=== PATIENT | female | born 1990 | race Caucasian/White ===

== ENCOUNTER 2019-04-14 11:55 | Emergency (ER) | payer OTHER ==
[~2019-04-14] VITALS: Ht 177.8 cm; Wt 59.0 kg
[2019-04-14 12:01] VITALS: BP 150/97
--- NOTE | 2019-04-14 12:05 | NUR ---
POLINA CADET AT BEDSIDE FOR EVAL.
[2019-04-14] MEDS ORDERED: IBUPROFEN 600 MG TABLET PO ONE ×2 (12:17→12:30)
--- NOTE | 2019-04-14 12:22 | NUR ---
ASSISTANT INFANT TODDLER TEACHER AT BEDSIDE FOR XRAY.
--- NOTE | 2019-04-14 12:56 | NUR ---
SHOULDER SLING APPLIED BY EMT
--- NOTE | 2019-04-14 13:41 | NUR ---
Patient discharged to home in stable condition. Written and verbal after care instructions given. Patient verbalizes understanding of instruction.
== END 2019-04-14 13:42 | disposition home or self-care (01) ==
LOC: ER 11:55
DX: S42.034A Nondisplaced fracture of lateral end of right clavicle, initial encounter for closed fracture (principal); S40.011A Contusion of right shoulder, initial encounter; S20.211A Contusion of right front wall of thorax, initial encounter; W01.0XXA Fall on same level from slipping, tripping and stumbling without subsequent striking against object, initial encounter; Y93.89 Activity, other specified; Y92.89 Other specified places as the place of occurrence of the external cause; Y99.8 Other external cause status
CPT/HCPCS: 73030-TC

== ENCOUNTER 2020-07-24 15:28 | Inpatient (IN) | payer OTHER ==
[~2020-07-24] VITALS: Ht 177.8 cm; Wt 75.7 kg
--- NOTE | 2020-07-24 15:40 | NUR ---
BIB SELF C/O L FLANK PAIN FOR 5 DAYS AND FEVER STARTED TODAY. THE PATIENT RATES PAIN 8/10. DENIES SOB. RESPIRATION REGULAR AND UNLABORED. THE PATIENT IS ALERT AND ORIENTED X4. WARM BLANKET PROVIDED FOR COMFORT. WILL CONTINUE TO MONITOR.
[2020-07-24] MEDS ORDERED: KETOROLAC TROMETHAMINE 15 MG/ML VIAL ONE (16:29)
[2020-07-24] MEDS ORDERED: IV NS 0.9% 1,000 ML BAG IV ONE ×2 (16:30→17:30)
[2020-07-24] MEDS ORDERED: KETOROLAC TROMETHAMINE INJ 30 MG/ML VIAL IV ONE (16:30)
--- NOTE | 2020-07-24 16:30 | NUR ---
WAIVER SIGNED BY THE PATIENT
[2020-07-24 16:45] LABS: BASOPHILS % (AUTO) 0.1 % (0.0-2.0); HEMATOCRIT 40 % (33-45); HEMOGLOBIN 13.5 g/dL (11.5-14.8); LYMPHOCYTES # (AUTO) 0.6 /CMM (0.8-4.8); LYMPHOCYTES % (AUTO) 3.9 % (20.0-44.0); MEAN CORPUSCULAR HGB CONC 33 g/dl (31.0-36.0); MEAN CORPUSCULAR VOLUME 92 fL (82-100); MONOCYTES # (AUTO) 1.5 /CMM (0.1-1.30); MONOCYTES % (AUTO) 9.2 % (2.0-12.0); NEUTROPHILS # (AUTO) 14.4 /CMM (1.8-8.9); NEUTROPHILS % (AUTO) 86.8 % (43.0-81.0); PLATELET COUNT (AUTO) 255 /CMM (150-450); RED BLOOD CELL COUNT(AUTO) 4.38 MIL/uL (4.0-5.2); WHITE BLOOD COUNT (AUTO) 16.6 K/uL (4.3-11.0)
[2020-07-24 16:52] LABS: CALCIUM, SERUM 9.8 mg/dL (8.5-10.1); CARBON DIOXIDE 24 mmol/L (21-32); CHLORIDE 97 mmol/L (98-107); CREATININE 1.2 mg/dL (0.6-1.3); GLUCOSE 177 mg/dL (74-106); POTASSIUM 3.6 mmol/L (3.5-5.1); SODIUM SERUM 131 mmol/L (136-145); UREA NITROGEN, BLOOD 8 mg/dL (7-18)
[2020-07-24 16:59] LABS: ALANINE AMINOTRANSFERASE 20 U/L (12-78); ALBUMIN 3.2 g/dL (3.4-5.0); ALKALINE PHOSPHATASE 90 U/L (46-116); ASPARTATE AMINOTRANSFERASE 11 U/L (15-37); BILIRUBIN,DIRECT 0.2 mg/dL (0.0-0.2); BILIRUBIN,TOTAL 0.5 mg/dL (0.2-1.0); LIPASE 23 U/L (73-393); TOTAL PROTEIN, SERUM 8.2 g/dL (6.4-8.2)
[2020-07-24] MEDS ORDERED: CEFTRIAXONE 1GM BAG (ER ONLY) 50 ML IV ONE ×2 (17:30→17:37)
--- NOTE | 2020-07-24 17:34 | NUR ---
MORPHINE 2 MG IV PUSH ORDERED BY DR RENEE. READ BACK, VERIFIED. NOTED AND CARRIED OUT.
[2020-07-24] MEDS ORDERED: MORPHINE SULFATE INJ 2 MG/ML DISP.SYRIN ONE (17:37)
[2020-07-24] MEDS ORDERED: MORPHINE SULFATE INJ 2 MG/ML DISP.SYRIN IV ONE (18:00)
[2020-07-24] MEDS ORDERED: ETHI1TAB4 PO (18:47)
[2020-07-24] MEDS ORDERED: FLUO40CA8 PO (18:47)
[2020-07-24] MEDS ORDERED: CLON0.5T PO (18:47)
[2020-07-24 19:09] LABS: BILIRUBIN,URINE NEGATIVE (NEGATIVE); COLOR,URINE YELLOW (YELLOW); LEUKOCYTE ESTERASE ,URINE SMALL (NEGATIVE); NITRITE, URINE NEGATIVE (NEGATIVE); PROTEIN,URINE 30 mg/dl (NEGATIVE); UGLUCOSE 100 MG/DL mg/dL (NEGATIVE); UROBILINOGEN,URINE 0.2 EU/dL (0.2)
--- NOTE | 2020-07-24 19:16 | NUR ---
Call from lab. Rapid covid negative.
[2020-07-24 19:30] LABS: BACTERIA,URINE 1+ /HPF (None Seen)
--- NOTE | 2020-07-24 19:49 | NUR ---
RECIEVED BED 322-2
--- NOTE | 2020-07-24 20:16 | NUR ---
REPORT GIVEN TO MIRTA KUMAR FOR JAIME
--- NOTE | 2020-07-24 21:11 | NUR ---
PT TRANSFERRED TO MS BED 322 VIA [facility] IN STABLE CONDITION
[2020-07-24 21:15] VITALS: BP 111/54
--- NOTE | 2020-07-24 21:15 | NUR ---
MS RN NOTE TEMP 100.6 F. COOLING MEASURES INITIATED. COLD PACKS PLACED ON FOREHEAD AND BOTH AXILLA.
[2020-07-24] MEDS: IV NS 0.9% 1,000 ML IV PRN (21:54)
[2020-07-24] MEDS ORDERED: Z GUARD REMEDY 2 OZ OINT TP PRN (22:00)
--- NOTE | 2020-07-24 22:10 | NUR ---
MS EMT P NOTE: PATIENT TRANSFERRED TO ROOM 322-2. ORIENTED PATIENT TO ROOM, UNIT, PRIMARY NURSE, AND PEST CONTROL WORKER. PATIENT'S SKIN INTACT BESIDES L UPPER THIGH BRUISE AND SMALL BRUISE ON LEFT ARM D/T HITTING A TABLE IN THE DARK AT HOME. PATIENT CURRENTLY REPORTS MILD PAIN. PATIENT HAVING FEVER AND CHILLS. SAFETY PRECAUTIONS IN PLACE. CALL LIGHT WITHIN REACH. WILL MONITOR PATIENT CLOSELY DURING THE SHIFT. Addendum: 07/24/20 at 2232 by TYRONE MOSER RN TIME OF ADMISSION 037
[2020-07-24] MEDS: ONDANSETRON HCL/PF 4 MG/2 ML VIAL IVP PRN (22:11)
[2020-07-24] MEDS: MORPHINE SULFATE INJ 2 MG/ML DISP.SYRIN IV PRN (22:11)
--- NOTE | 2020-07-24 22:15 | NUR ---
MS RN NOTE RECHECKED PATIENT'S TEMPERATURE. ELEVATED TO 103. 6. COOLING MEASURES STILL IN PLACE AND TYLENOL 650 MG GIVEN FOR FEVER. WILL REASSESS.
[2020-07-24] MEDS: ACETAMINOPHEN 325 MG TABLET PO PRN (22:24)
--- NOTE | 2020-07-24 23:30 | NUR ---
MR RN NOTE TEMP RECHECKED. DECREASED TO 100.4. WILLCONTINUE COOLING MEASURES AND WILL CLOSELY MONITOR PATIENT.
--- NOTE | 2020-07-25 00:30 | NUR ---
MS RN NOTE TEMP IS NOW 99.3. WILL CONTINUE TO MONITOR CLOSELY.
[2020-07-25 05:36] VITALS: BP 106/62
[2020-07-25] MEDS: ACETAMINOPHEN 325 MG TABLET PO PRN ×2 (05:36→12:36)
[2020-07-25] MEDS: ONDANSETRON HCL/PF 4 MG/2 ML VIAL IVP PRN ×3 (05:36→21:49)
--- NOTE | 2020-07-25 05:36 | NUR ---
MS RN NOTE PATIENT GIVEN TYLENOL 650 MG AND ZOFRAN 4MG FOR FEVER OF 102.3 AND NAUSEA.
[2020-07-25] MEDS: MORPHINE SULFATE INJ 2 MG/ML DISP.SYRIN IV PRN ×4 (06:15→21:53)
--- NOTE | 2020-07-25 06:52 | NUR ---
MS RN CLOSING NOTE PATIENT RESTING IN BED, EASILY AWAKENED. A/O X 4. PATIENT DOES NOT REPORT OF ANY PAIN N/V AT THIS TIME. TEMPERATURE NOW AT 100.2 F. INSTRUCTED PATIENT TO CONTINUE COOLING MEASURES. PAIN AND NAUSEA MANAGED DURING THE SHIFT. BREATHING EVEN AND UNLABORED. PATIENT TOLERATING ROOM AIR. NS @ 75 ML/HR INFUSING WELL/ IV SITE PATENT AND INTACT. ROUTINE AND PRN MEDS GIVEN. SAFETY PRECAUTIONS MAINTAINED THROUGHOUT THE SHIFT. ALL NEEDS MET AND ATTENDED. WILL ENDORSE TO DAY SHIFT NURSE.
--- NOTE | 2020-07-25 07:49 | NUR ---
MS RN OPENING NOTE PT RECEIVED IN BED, AWAKE AND RESPONSIVE. PT IS A/O X 4, VERBAL, HEBREW SPEAKING AND ABLE TO MAKE NEEDS KNOWN WITH NO C/O PAIN OR S/SX OF ACUTE DISTRESS AT THIS TIME. PT IS ON ROOM AIR WITH NO S/SX OF RESPIRATORY DISTRESS NOTED. PT'S IV ACCESS IS ON LEFT FOREARM G#20, PATENT, INTACT AND FLUSHING WELL, RUNNING NS AT 75 ML/HR, WITH NO S/SX OF INFECTION, INFILTRATION OR IRRITATION. PT IS AMBULATORY WITH STEADY GAIT AND CAN GO TO THE BATHROOM INDEPENDENTLY. SAFETY MEASURES IN PLACE: BED IN LOWEST, LOCKED POSITION WITH BOTH UPPER SIDE RAILS UP X2. CALL LIGHT PLACED WITHIN REACH. WILL CONTINUE TO MONITOR.
[2020-07-25 08:00] VITALS: BP 106/63
[2020-07-25] MEDS: FLUOXETINE HCL 20 MG/5 ML UDC PO SCH (08:16)
[2020-07-25 10:53] LABS: BASOPHILS % (AUTO) 0.2 % (0.0-2.0); EOSINOPHILS % (AUTO) 0.1 % (0.0-6.0); HEMATOCRIT 34 % (33-45); HEMOGLOBIN 11.3 g/dL (11.5-14.8); LYMPHOCYTES # (AUTO) 1.1 /CMM (0.8-4.8); LYMPHOCYTES % (AUTO) 7.4 % (20.0-44.0); MEAN CORPUSCULAR HGB CONC 33 g/dl (31.0-36.0); MEAN CORPUSCULAR VOLUME 93 fL (82-100); MONOCYTES # (AUTO) 1.6 /CMM (0.1-1.30); MONOCYTES % (AUTO) 10.3 % (2.0-12.0); NEUTROPHILS # (AUTO) 12.6 /CMM (1.8-8.9); PLATELET COUNT (AUTO) 233 /CMM (150-450); RED BLOOD CELL COUNT(AUTO) 3.72 MIL/uL (4.0-5.2); WHITE BLOOD COUNT (AUTO) 15.3 K/uL (4.3-11.0)
[2020-07-25 11:10] LABS: ALBUMIN 2.4 g/dL (3.4-5.0); BILIRUBIN,TOTAL 0.3 mg/dL (0.2-1.0); CREATININE 0.9 mg/dL (0.6-1.3); MAGNESIUM 1.7 mg/dL (1.8-2.4); PHOSPHORUS 2.1 mg/dL (2.5-4.9); POTASSIUM 3.9 mmol/L (3.5-5.1); TOTAL PROTEIN, SERUM 6.4 g/dL (6.4-8.2)
[2020-07-25 11:17] LABS: THYROID STIMULATING HORMONE 0.485 uIU/mL (0.358-3.74)
[2020-07-25] MEDS: IV NS 0.9% 1,000 ML IV PRN (11:22)
--- NOTE | 2020-07-25 12:55 | NUR ---
MS RN NOTE: FEVER/CHILLS PT OBSERVED HAVING CHILLS AND FEVER OF 100.2. COOLING MEASURES INITIATED FOR FEVER, AND HEATED BLANKET GIVEN TO PT FOR CHILLS, PER PT'S REQUEST. OFFERED AND ADMINISTERED TYLENOL 650MG PO Q6H PRN AT 1236 ORDERED PER PT'S REQUEST. WILL CONTINUE TO MONITOR.
--- NOTE | 2020-07-25 12:57 | NUR ---
MS RN NOTE: PAIN PT C/O ACHING, STABBING PAIN ON LEFT SIDE/BACK RATED 8/10. COSTOVERTEBRAL ANGLE POSITIVE FOR TENDERNESS PER DR. [place]. OFFERED AND ADMINISTERED MORPHINE 2MG IVP Q4H PRN AT 1237 ORDERED PER PT'S REQUEST. WILL CONTINUE TO MONITOR. Addendum: 07/25/20 at 1324 by DAVE CORREA RN REASSESSED AT 1307. NO C/O PAIN AT THIS TIME.
--- NOTE | 2020-07-25 12:57 | NUR ---
MS KIRBY NOTE: NAUSEA PT C/O NAUSEA WITHOUT EMESIS. OFFERED AND ADMINISTERED ZOFRAN 4MG/2ML IVP Q6H PRN AT 1236 ORDERED PER PT'S REQUEST. WILL CONTINUE TO MONITOR. Addendum: 07/25/20 at 1323 by DAVE CORREA RN REASSESSED NAUSEA AT 1306. NO C/O NAUSEA AT THIS TIME.
[2020-07-25] MEDS ORDERED: K PHOS NEUTRAL 250 MG TABLET PO ONE (15:30)
[2020-07-25 16:00] VITALS: BP 113/62
[2020-07-25] MEDS: clonazePAM 0.5 MG TABLET PO PRN ×2 (16:05→23:10)
[2020-07-25] MEDS: CEFTRIAXONE 2 G in IV D5W 100 ML IV SCH (16:37)
--- NOTE | 2020-07-25 16:48 | NUR ---
MS KIRBY NOTE: PAIN PT C/O LEFT LOWER BACK/ABDOMEN PAIN RATED 8/10. OFFERED AND ADMINISTERED MORPHINE SULFATE 2MF IBP Q4H PRN AT 1638 ORDERED PER PT'S REQUEST. WILL CONTINUE TO MONITOR. Addendum: 07/25/20 at 1709 by DAVE CORREA RN REASSESSED AT 1708 WITH 0/10 PAIN.
--- NOTE | 2020-07-25 18:50 | NUR ---
MS RN CLOSING NOTE PT REMAINS IN BED, AWAKE, RESPONSIVE AND WATCHING TV. PT IS A/O X 4, VERBAL, CHINESE SPEAKING AND ABLE TO MAKE NEEDS KNOWN WITH NO C/O PAIN OR S/SX OF ACUTE DISTRESS AT THIS TIME. PT IS ON ROOM AIR WITH NO S/SX OF RESPIRATORY DISTRESS NOTED. PT'S IV ACCESS IS ON LEFT FOREARM G#20, PATENT, INTACT AND FLUSHING WELL, RUNNING NS AT 75 ML/HR, WITH NO S/SX OF INFECTION, INFILTRATION OR IRRITATION. PT IS AMBULATORY WITH STEADY GAIT AND CAN GO TO THE BATHROOM INDEPENDENTLY. ALL CARE, NEEDS, MEDICATION AND TREATMENTS GIVEN ON TIME ORDERED PER FACILITY PROTOCOL. SAFETY MEASURES MAINTAINED: BED IN LOWEST POSITION AND LOCKED WITH BOTH UPPER SIDE RAILS UP X2. CALL LIGHT PLACED WITHIN REACH. WILL ENDORSE TO COUNTY DEMONSTRATOR NURSE.
[2020-07-25 19:00] VITALS: BP 119/60
[2020-07-25 20:00] VITALS: BP 119/60
[2020-07-26 02:32] VITALS: BP 111/75
[2020-07-26 04:00] VITALS: BP 100/63
[2020-07-26] MEDS: IV NS 0.9% 1,000 ML IV PRN ×2 (04:52→22:45)
[2020-07-26] MEDS: ACETAMINOPHEN 325 MG TABLET PO PRN (05:41)
[2020-07-26 06:17] LABS: BASOPHILS % (AUTO) 0.1 % (0.0-2.0); HEMATOCRIT 35 % (33-45); HEMOGLOBIN 11.7 g/dL (11.5-14.8); LYMPHOCYTES # (AUTO) 2.2 /CMM (0.8-4.8); LYMPHOCYTES % (AUTO) 16.6 % (20.0-44.0); MEAN CORPUSCULAR HGB CONC 33 g/dl (31.0-36.0); MEAN CORPUSCULAR VOLUME 92 fL (82-100); MONOCYTES # (AUTO) 1.9 /CMM (0.1-1.30); MONOCYTES % (AUTO) 13.8 % (2.0-12.0); NEUTROPHILS # (AUTO) 9.4 /CMM (1.8-8.9); NEUTROPHILS % (AUTO) 69.5 % (43.0-81.0); PLATELET COUNT (AUTO) 258 /CMM (150-450); RED BLOOD CELL COUNT(AUTO) 3.82 MIL/uL (4.0-5.2); WHITE BLOOD COUNT (AUTO) 13.5 K/uL (4.3-11.0)
--- NOTE | 2020-07-26 06:22 | NUR ---
MS RN CLOSING NOTES: PATIENT IN BED, ASLEEP. A/O X4, NO S/S OF DISTRESS NOTED. CALL LIGHT WITHIN REACH. BED IN LOWEST AND LOCKED POSITION. AMBULATORY WITH STEADY GAIT.
[2020-07-26 07:01] LABS: ALBUMIN 2.5 g/dL (3.4-5.0); BILIRUBIN,TOTAL 0.2 mg/dL (0.2-1.0); CREATININE 0.9 mg/dL (0.6-1.3); MAGNESIUM 1.7 mg/dL (1.8-2.4); PHOSPHORUS 2.2 mg/dL (2.5-4.9); POTASSIUM 3.5 mmol/L (3.5-5.1); TOTAL PROTEIN, SERUM 6.8 g/dL (6.4-8.2)
[2020-07-26 08:00] VITALS: BP 97/53
[2020-07-26] MEDS: FLUOXETINE HCL 20 MG/5 ML UDC PO SCH (08:43)
[2020-07-26] MEDS: Magnesium 1GM/D5W 100ML PREMIX 100 ML IV SCH ×2 (10:36→11:46)
[2020-07-26] MEDS ORDERED: K PHOS NEUTRAL 250 MG TABLET PO ONE (12:30)
[2020-07-26] MEDS: MORPHINE SULFATE INJ 2 MG/ML DISP.SYRIN IV PRN ×3 (13:09→22:34)
--- NOTE | 2020-07-26 13:09 | NUR ---
m/s glassine machine tender: notes c/o 11/29 flank pain, medicated with morphine 2mg ivp by rn. will continue to monitor.
--- NOTE | 2020-07-26 13:39 | NUR ---
m/s chartered wealth manager: notes pt verbalized relief of flank pain 0/10. instructed to call for assistance. will continue to monitor.
[2020-07-26 16:00] VITALS: BP 116/72
[2020-07-26] MEDS: CEFTRIAXONE 2 G in IV D5W 100 ML IV SCH (16:59)
--- NOTE | 2020-07-26 18:03 | NUR ---
m/s drilling field professional: notes c/o 11/29 left flank pain, medicated with morphine 2mg ivp by rn. will continue to monitor. instructed to call for assistance.
--- NOTE | 2020-07-26 18:33 | NUR ---
m/s forwarder operator: notes pt verbalized relief of flank pain 0/10. instructed to call for assistance. needs attended. will continue to monitor.
--- NOTE | 2020-07-26 19:09 | NUR ---
m/s or director: notes report given to kristen (kali) for continuity of care.
[2020-07-26 20:00] VITALS: BP 102/60
--- NOTE | 2020-07-26 20:00 | NUR ---
MS RN OPENING NOTES PT WAS SEEN AWAKE IN BED. PT IS ALERT AND ORIENTED X 4. PT'S STABLE ON ROOM AIR, BREATHING EVEN AND UNLABORED. PT'S SKIN IS INTACT. SAFETY MEASURES IN PLACE. CALL LIGHT WITHIN EASY REACH AND BED ALARM ON. WILL CONTINUE TO MONITOR THE PT.
[2020-07-26] MEDS: ZOLPIDEM TARTRATE 5 MG TABLET PO PRN ×2 (22:44→23:51)
--- NOTE | 2020-07-26 22:52 | NUR ---
PT HAD 9/10 SHARP PAIN ON THE LEFT SIDE OF HER BACK. PT WAS GIVEN 2MG/1ML OF IV MORPHINE AT 2234. WILL CONTINUE TO MONITOR THE PAIN.
--- NOTE | 2020-07-27 02:01 | NUR ---
PATIENT'S INTRAVENOUS ACCESS ON HER LEFT FOREARM WAS DISCONTINUED DUE TO LEAKAGE IN THE INTRAVENOUS INSERTION SITE. AT 0145, A NEW INTRAVENOUS ACCESS GAUGE #22 WAS INSERTED IN THE PATIENT'S RIGHT FOREARM.
[2020-07-27] MEDS: MORPHINE SULFATE INJ 2 MG/ML DISP.SYRIN IV PRN ×4 (02:38→22:36)
--- NOTE | 2020-07-27 02:38 | NUR ---
RN MS NOTES PT HAD 8/10 SHARP PAIN ON THE LEFT SIDE OF HER BACK. PT WAS GIVEN 2MG/1ML OF IV MORPHINE AT 0238. WILL CONTINUE TO MONITOR THE PAIN.
[2020-07-27 06:46] LABS: BASOPHILS % (AUTO) 0.4 % (0.0-2.0); EOSINOPHILS % (AUTO) 0.4 % (0.0-6.0); HEMATOCRIT 31 % (33-45); HEMOGLOBIN 10.4 g/dL (11.5-14.8); LYMPHOCYTES # (AUTO) 2.4 /CMM (0.8-4.8); LYMPHOCYTES % (AUTO) 30.4 % (20.0-44.0); MEAN CORPUSCULAR HGB CONC 34 g/dl (31.0-36.0); MEAN CORPUSCULAR VOLUME 92 fL (82-100); MONOCYTES # (AUTO) 0.8 /CMM (0.1-1.30); MONOCYTES % (AUTO) 10.2 % (2.0-12.0); NEUTROPHILS # (AUTO) 4.7 /CMM (1.8-8.9); NEUTROPHILS % (AUTO) 58.6 % (43.0-81.0); PLATELET COUNT (AUTO) 267 /CMM (150-450); RED BLOOD CELL COUNT(AUTO) 3.33 MIL/uL (4.0-5.2); WHITE BLOOD COUNT (AUTO) 8.1 K/uL (4.3-11.0)
--- NOTE | 2020-07-27 06:59 | NUR ---
MS RN CLOSING NOTES PT WAS SEEN AWAKE IN BED. PT IS ALERT AND ORIENTED X 4. PT'S STABLE ON ROOM AIR, BREATHING EVEN AND UNLABORED. PT'S SKIN IS INTACT. SAFETY MEASURES IN PLACE. CALL LIGHT WITHIN EASY REACH AND BED ALARM ON. WILL ENDORSE CONTINUITY OF CARE TO QUALITY ASSURANCE TECHNICIAN NURSE.
[2020-07-27 07:14] LABS: CREATININE 0.7 mg/dL (0.6-1.3); MAGNESIUM 2.2 mg/dL (1.8-2.4); PHOSPHORUS 3.4 mg/dL (2.5-4.9); POTASSIUM 3.6 mmol/L (3.5-5.1)
[2020-07-27 08:00] VITALS: BP 120/78
--- NOTE | 2020-07-27 08:00 | NUR ---
received pt. in am alert and oriented xx 4. skin warm and dry.vs stable,no distress.
[2020-07-27] MEDS: FLUOXETINE HCL 20 MG/5 ML UDC PO SCH (10:05)
[2020-07-27] MEDS ORDERED: CEPH500T PO (12:52)
[2020-07-27 16:00] VITALS: BP 118/81
[2020-07-27] MEDS: CEFTRIAXONE 2 G in IV D5W 100 ML IV SCH (17:19)
--- NOTE | 2020-07-27 18:00 | NUR ---
stable. med x 2 with morphine for abd. pain and lt. flank pain.
[2020-07-27] MEDS: IV NS 0.9% 1,000 ML IV PRN (18:22)
--- NOTE | 2020-07-27 19:30 | NUR ---
MS/RN OPENING NOTES RECEIVED PATIENT IN BED RESTING. PATIENT IS ALERT AND ORIENTED X 4. PATIENTS BREATHING IS EVEN AND UNLABORED. NO SIGNS ON SOB OR RESPIRATORY NOTED. PATIENT IN NO SIGNS OF DISTRESS. SAFETY MEASURES ARE IN PLACE, BED IS LOCKED AND PLACED IN THE LOW POSITION, CALL LIGHT IS WITHIN REACH. WILL CONTINUE WITH PATIENT PLAN OF CARE.
[2020-07-27 20:00] VITALS: BP 114/83
--- NOTE | 2020-07-27 23:40 | NUR ---
MS/RN NOTES PATIENT STATES GENERALIZED PAIN. PATIENT GIVEN MORPHINE 2MG/1ML IVP. PATIENT V/S ARE STABLE.
[2020-07-27] MEDS: ZOLPIDEM TARTRATE 5 MG TABLET PO PRN (23:41)
[2020-07-28] MEDS: MORPHINE SULFATE INJ 2 MG/ML DISP.SYRIN IV PRN ×3 (02:40→15:14)
--- NOTE | 2020-07-28 02:45 | NUR ---
MS/RN NOTES PATIENT STATES GENERALIZED PAIN. PATIENT GIVEN MORPHINE 2MG/1ML IVP. PATIENT V/S ARE STABLE, PATIENT IN NO SIGNS OF DISTRESS.
--- NOTE | 2020-07-28 06:50 | NUR ---
MS/RN CLOSING NOTES PATIENT IN BED RESTING. PATIENT IS ALERT AND ORIENTED X 4. PATIENTS BREATHING IS EVEN AND UNLABORED. NO SIGNS ON SOB OR RESPIRATORY NOTED. PATIENT IN NO SIGNS OF DISTRESS. ALL NEEDS HAVE BEEN MET. SAFETY MEASURES ARE IN PLACE, BED IS LOCKED AND PLACED IN THE LOW POSITION, CALL LIGHT IS WITHIN REACH. WILL ENDORSE CARE TO DAY SHIFT NURSE.
--- NOTE | 2020-07-28 07:51 | NUR ---
MS/RN OPENING NOTES RECEIVED PATIENT IN BED RESTING. PATIENT IS ALERT AND ORIENTED X 4. PATIENTS BREATHING IS EVEN AND UNLABORED. NO SIGNS ON SOB OR RESPIRATORY NOTED. PATIENT IN NO SIGNS OF DISTRESS. PATIENT IS ON ROOM AIR AT 95%. RFA # 22 GAUGE NS @ 75ML/HR. SAFETY MEASURES ARE IN PLACE, BED IS LOCKED AND PLACED IN THE LOW POSITION, CALL LIGHT IS WITHIN REACH. SKIN IS INTACT. WILL CONTINUE TO MONITOR THROUGHOUT SHIFT.
[2020-07-28 08:00] VITALS: BP 133/75
--- NOTE | 2020-07-28 09:00 | NUR ---
MS RN NOTES PATIENT COMPLAINED OF PAIN AND NAUSEA. GAVE PRN MEDICATION ORDERED. WILL CONTINUE TO MONITOR PATIENT.
[2020-07-28] MEDS: FLUOXETINE HCL 20 MG/5 ML UDC PO SCH (09:04)
[2020-07-28] MEDS: ONDANSETRON HCL/PF 4 MG/2 ML VIAL IVP PRN (09:04)
--- NOTE | 2020-07-28 16:07 | NUR ---
MS ISSUE CLERK NOTE RECEIVED PATIENT DISCHARGE ORDER. PATIENT IS ALERT AND ORIENTED X 4. PATIENTS BREATHING IS EVEN AND UNLABORED. NO SIGNS ON SOB OR RESPIRATORY NOTED. PATIENT IN NO SIGNS OF DISTRESS. PATIENT IS ON ROOM AIR. PATIENT RECEIVED VERBAL AND WRITTEN DISCHARGE INSTRUCTIONS. IV AND NAME BAND REMOVED. NO SKIN ISSUES NOTED. MD AND CHARGE NURSE AWARE OF DISCHARGE. PATIENT WAS PICKED UP BY FRIEND. LEFT IN STABLE CONDITION.
== END 2020-07-28 16:25 | disposition home or self-care (01) | DRG 872 ==
LOC: ER 15:33 → MED 19:50
PROVIDERS: ADMIT Nurse Practitioner Acute Care; ATTEND Student in an Organized Health Care Education/Training Program
DX: A41.9 Sepsis, unspecified organism (principal); E87.1 Hypo-osmolality and hyponatremia; N12 Tubulo-interstitial nephritis, not specified as acute or chronic; E87.2 Acidosis; F32.9 Major depressive disorder, single episode, unspecified; Z87.442 Personal history of urinary calculi; Z20.822 Contact with and (suspected) exposure to COVID-19
CPT/HCPCS: 36415; 80048-TC; 80053-TC; 80061-TC; 80076-TC; 81001; 83540-TC; 83605-TC; 83690-TC; 83735-TC; 84100-TC; 84443-TC; 84484-TC; 84703-TC; 85025-TC; 85730-TC; 87040-TC; 87081-TC; 87086-TC; C9803; G0378; J0696; J1885; J2270; J2405; J3475; J7030; J7060